=== PATIENT | female | born 1945 | race Caucasian/White ===

== ENCOUNTER → 2021-06-10 | Outpatient (CLI) | payer MEDICARE | END | disposition home or self-care (01) | LOC: RAD 16:09 | PROVIDERS: ATTEND Nurse Practitioner Family | DX: R91.8 Other nonspecific abnormal finding of lung field (principal) ==

== ENCOUNTER → 2021-07-08 | Outpatient (CLI) | payer MEDICARE, BC | END | disposition home or self-care (01) | LOC: RAD 09:39 | PROVIDERS: ATTEND Nurse Practitioner Family | DX: J15.9 Unspecified bacterial pneumonia (principal); E11.69 Type 2 diabetes mellitus with other specified complication ==

== ENCOUNTER → 2023-02-24 | Outpatient (CLI) | payer MEDICARE | END | disposition home or self-care (01) | LOC: LAB 12:19 → US 12:30 | PROVIDERS: ATTEND Internal Medicine Nephrology | DX: N20.0 Calculus of kidney (principal); N17.9 Acute kidney failure, unspecified; N18.9 Chronic kidney disease, unspecified; E83.9 Disorder of mineral metabolism, unspecified; N28.1 Cyst of kidney, acquired ==